=== PATIENT | male | born 1945 ===

== ENCOUNTER 2016-10-28 10:52 | Inpatient (IN) | payer OTHER ==
[2016-10-28] MEDS ORDERED: LIDOCAINE 1% 2 ML INJ ONE (11:16)
[2016-10-28] MEDS ORDERED: LR 1,000 ML IV ONE (11:27)
[2016-10-28] MEDS ORDERED: LIDOCAINE 1% 5 ML SDV ID PRN (11:27)
[2016-10-28] MEDS ORDERED: ceFAZolin 2 GM/DEXTROSE 100 ML IV ONE (12:00)
[2016-10-28] MEDS ORDERED: CHLORHEXIDINE GLUC HIBICLENS 118 ML BTL TP ONE (12:00)
[2016-10-28] MEDS ORDERED: BACITRACIN 50,000 UNITS/10 ML SYR IRR ONE (13:54)
[2016-10-28] MEDS ORDERED: THROMBIN (BOVINE) 5,000 UNIT VIAL TP ONE (13:54)
[2016-10-28] MEDS ORDERED: BUPIVACAINE/EPI 0.25% 30 ML SDV ONE (13:54)
[2016-10-28] MEDS ORDERED: TEMAZEPAM 15 MG CAP PO PRN (14:02)
[2016-10-28] MEDS ORDERED: METHOCARBAMOL 750 MG TAB PO PRN (14:02)
[2016-10-28] MEDS ORDERED: HYDROmorphONE/DILAUDID 6 MG/30 ML PCA IV PRN (14:02)
[2016-10-28] MEDS ORDERED: LACTULOSE 20 GM/30 ML UDCUP PO PRN (14:02)
[2016-10-28] MEDS ORDERED: ACETAMINOPHEN 325 MG TAB PO PRN (14:02)
[2016-10-28] MEDS ORDERED: oxyCODONE IR 5 MG TAB PO PRN (14:02)
[2016-10-28] MEDS ORDERED: ONDANSETRON DISINTEGRATING 4 MG TAB PO PRN (14:02)
[2016-10-28] MEDS ORDERED: POLYETHYLENE GLYCOL 3350 17 GM PKT PO PRN (14:02)
[2016-10-28] MEDS ORDERED: MAGNESIUM HYDROXIDE 30 ML UDCUP PO PRN (14:02)
[2016-10-28] MEDS ORDERED: DIAZEPAM 10 MG/2 ML SYR IVP PRN (14:02)
[2016-10-28] MEDS ORDERED: HYDROmorphONE/DILAUDID 1 MG/ML SYR IVP PRN (14:02)
[2016-10-28] MEDS ORDERED: NALOXONE HCL 0.4 MG/ML INJ IVP PRN (14:02)
[2016-10-28] MEDS ORDERED: BISACODYL 10 MG SUPP PR PRN (14:02)
[2016-10-28] MEDS ORDERED: diphenhydrAMINE 25 MG CAP PO PRN (14:02)
[2016-10-28] MEDS ORDERED: ONDANSETRON 4 MG/2 ML VIAL IVP PRN (14:02)
[2016-10-28] MEDS ORDERED: fentaNYL 100 MCG/2 ML INJ ONE ×4 (14:11→18:08)
[2016-10-28] MEDS ORDERED: PROPOFOL/EMULSION 500 MG/50 ML BOTTLE IV ONE (14:12)
[2016-10-28] MEDS ORDERED: MIDAZOLAM 2 MG/2 ML VIAL ONE (14:14)
[2016-10-28] MEDS ORDERED: NS W/ 20 KCl/L 1,000 ML IV SCH (14:15)
[2016-10-28] MEDS ORDERED: REMIFENTANIL HCL 1 MG VIAL ONE (14:55)
[2016-10-28] MEDS ORDERED: epHEDrine SULFATE 10 MG/ML SYR ONE ×2 (14:57→16:42)
[2016-10-28] MEDS ORDERED: DEXAMETHASONE 4 MG/ML VIAL ONE (17:02)
[2016-10-28] MEDS ORDERED: ONDANSETRON 4 MG/2 ML VIAL ONE (17:03)
--- NOTE | 2016-10-28 17:33 | SOAPPROG ---
SOAP Progress Note Assessment/Plan: Post Op Visit: S: Awake and alert. Pt with expected lower back pain O: AFVSS/PERRLA/EOMI no droop CN 2-12 grossly intact +lt touch 5/5 BUE/BLE = CDI CINDY in place A/P: 71 yo male that is s/p TLIF at L4/5 -orders in place -call with any questions or concerns -take medications as directed -pt seen by Dr Faulkner as well 10/28/16 17:30 ICD10 Worksheet Patient Problems: Problems Problem Status Onset Arthrodesis status Acute Lumbar radiculitis Acute Lumbar stenosis Acute - ICD10 Problem Qualifiers (1) Lumbar stenosis (2) Lumbar radiculitis (3) Arthrodesis status
[2016-10-28] MEDS ORDERED: LABETALOL HCL 50 MG/10 ML SYR ONE (17:40)
[2016-10-28] MEDS ORDERED: hydrALAZINE 20 MG/ML VIAL ONE (18:20)
[2016-10-28 19:38] VITALS: RESP 16
[2016-10-28] MEDS ORDERED: FAMOTIDINE 20 MG/NACL 50 ML IV SCH (21:00)
[2016-10-28] MEDS: FAMOTIDINE 20 MG TAB PO SCH (21:33)
[2016-10-28] MEDS: SENNOSIDES/DOCUSATE SODIUM TAB PO SCH (21:33)
[2016-10-28] MEDS: HYDROCODONE/APAP 10/325 TAB PO PRN (23:31)
[2016-10-28] MEDS: DIAZEPAM 5 MG TAB PO PRN (23:31)
--- NOTE | 2016-10-29 04:53 | GOP ---
[f rep st] OPERATIVE REPORT DATE OF OPERATION: 10/28/2016 SURGEON: Mary Faulkner MD NEUROSURGEON: Mary Faulkner MD. FINANCIAL PROCESSING CLERK: ELIUD Herr. PREOPERATIVE DIAGNOSIS: Lumbar spondylolisthesis L4-5, severe stenosis L4-5, lumbar degenerative di sk disease L5-S1. POSTOPERATIVE DIAGNOSIS: Lumbar spondylolisthesis L4-5, severe stenosis L4-5, lumbar degenerative d isk disease L5-S1. PROCEDURE PERFORMED: Posterior lateral and intervertebral arthrodesis with bilateral decompressions at L4-5 ([id number]), microscope stereotactic instrumentation across a single interspace same incision b one graft harvest, placement of biomechanical intervertebral device L4-5. FINDINGS: ESTIMATED BLOOD LOSS: 100 cc. INDICATIONS: The patient is a 71-year-old gentleman with terrible pain radiating down both legs, ri ght more so than left. 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 I sugges eveline a single level fusion. We did discuss two-level fusions and it was discussed extensively with m y partner as well. We both thought the symptomatic level was L4-5 and the smallest reasonable surge ry would be to do a 1 level fusion. The risk of nerve injury, continued symptoms, screw and hardwar e malposition, malfunction was discussed. He knew that this sometimes fails to alleviate symptoms. The risk of adjacent segment disease and additional surgeries at L3-4 were discussed. He did have a degree of stenosis at 3-4 but nothing that warranted surgery. He did want to proceed. DESCRIPTION OF PROCEDURE: Patient was taken to the operating room, placed in supine position. Gene ral anesthesia was begun. He was flipped prone onto the Loki table. Care was taken to pad all p oints of contact. His back was sterilely prepped and draped in the usual fashion. A localizing x-r ay was taken. We made a midline incision, it was 5 cm in length. The subcutaneous tissue was disse cted using Bovie cautery down to the fascia. A subperiosteal dissection was made down the L4-5 lami na. Self-retaining retractor was placed. A localizing x-ray was taken. We denuded the bilateral L 4-5 hypertrophic facets and indeed the facets were remarkably terrible. We decorticated the TPs at L4 and L5, attached the Stealth reference frame and using frameless stereotactically placed pedicle screws bilaterally at L4 and L5. There was excellent bony purchase. These pedicles were somewhat s maller than one would expect. We put 35 mm rods down over these. The rods did not protrude even a millimeter above the head of L4. They were slightly long at the bottom and we distracted ever so sl ightly. They were locked in place. We then removed all the soft tissue of the bone at L4-5 and mason vested the inferior L4 spinous process for autologous grafting purposes. We preserved the superior supraspinous and interspinous ligaments between L3 and L4. We then drilled and harvested bilateral laminectomy of L4 and then removed the complete right L4-5 facet. We worked diligently on the left- hand side to decompress the left L5 root and the lateral recess at L4-5. We then turned our attenti on to L4-5 on the right where we decompressed the exiting L4 root with a complete facetectomy and th e traversing L5 root. We swept the L5 root medially. There was indeed a prolapse of the L4-5 disc. We incised the disk and removed the disk and the cartilaginous endplates. We roughened the subcho ndral bone to create arthrodesis and chose an 8 x 23 mm device. We packed bony autograft and BMP in to the disk space and inserted the device and under fluoroscopic guidance expanded it. An x-ray was taken. We were happy with the positioning of the device in the disk space. We then decorticated a ll the remaining posterolateral bone bilaterally. There was some epidural bleeding at the site of t he access to the disk space itself and placed some Gelfoam over this and then placed bony autograft and BMP posterolaterally bilaterally. A subfascial drain was placed. The patient was then closed i n multiple layers using Vicryl sutures. A running PDS was placed in the skin itself. There were no complications. He tolerated the procedure well. COMPLICATIONS: None. INSTRUMENTATION USED: Neozone Solara system and an 8 x 23 mm Elevate cage. COMPLICATIONS: None. /[id number]/MODL
[2016-10-29] MEDS: HYDROCODONE/APAP 10/325 TAB PO PRN ×2 (05:12→19:56)
[2016-10-29 05:39] LABS: % IMMATURE GRANULYOCYTES 0.4 % (0.0-1.1); ABSOLUTE IMMATURE GRANULOCYTES 0.03 10^3/uL (0.00-0.10); ADD DIFF? NO; ADD MORPH? NO; ADD SCAN? NO; ATYPICAL LYMPHOCYTE FLAG 0 (0-99); FRAGMENT RBC FLAG 0 (0-99); HEMATOCRIT 33.3 % (40.0-51.0); HEMOGLOBIN 11.5 g/dL (13.7-17.5); LEFT SHIFT FLG 50 (0-99); LIPEMIA HEMOLYSIS FLAG 90 (0-99); MEAN CELL HEMOGLOBIN 29.1 pg (27.9-34.1); MEAN CELL HEMOGLOBIN CONCENTR. 34.5 g/dL (32.4-36.7); MEAN CELL VOLUME 84.3 fL (81.5-99.8); MEAN PLATELET VOLUME 11.1 fL (8.7-11.7); PLATELET CLUMPS FLAG 0 (0-99); PLATELET COUNT 189 10^3/uL (150-400); RED BLOOD CELL COUNT 3.95 10^6/uL (4.40-6.38); RED CELL DISTRIBUTION WIDTH 13.2 % (11.5-15.2)
[2016-10-29 05:50] LABS: ANION GAP 8 mEq/L (8-16); CALCIUM 8.8 mg/dL (8.5-10.4); CARBON DIOXIDE 22 mEq/l (22-31); CHLORIDE 103 mEq/L (97-110); CREATININE 0.8 mg/dL (0.7-1.3); GLOMERULAR FILTRATION RATE > 60; GLUCOSE 163 mg/dL (70-100); POTASSIUM 4.6 mEq/L (3.5-5.2); SODIUM 133 mEq/L (134-144)
[2016-10-29] MEDS: ROSUVASTATIN CALCIUM 20 MG TAB PO SCH (08:39)
[2016-10-29] MEDS: FAMOTIDINE 20 MG TAB PO SCH ×2 (08:39→19:57)
[2016-10-29] MEDS: SENNOSIDES/DOCUSATE SODIUM TAB PO SCH ×2 (08:40→19:57)
[2016-10-29] MEDS ORDERED: LOSARTAN POTASSIUM 50 MG TAB PO SCH (09:00)
[2016-10-29] MEDS ORDERED: LOSARTAN/HCTZ 50/12.5 1 TAB PO SCH (09:00)
[2016-10-29] MEDS ORDERED: CHOLESTYRAMINE PO SCH ×2 (09:00→10:30)
[2016-10-29] MEDS ORDERED: ASPARTAME PO SCH ×2 (09:00→10:30)
--- NOTE | 2016-10-29 10:02 | NEUSURGPN ---
Assessment/Plan: A/P: 71 yo male that is s/p TLIF at L4/5 POD #1 - optimize pain management -Overall doing well this morning -PT/OT -Brace when OOB -DVT: TEDs, SCDs, Lovenox on POD #2 -X-rays pending -CINDY removed -Dispo home later today if passes therapies, tolerating pain, if not, tomorrow -call with any questions or concerns -take medications as directed -pt seen by Dr Faulkner as well Objective: NAD, VSS BUE/BLE 5/5= Sensation intact to lt touch Incision c/d/i CINDY removed successfully by Dr. Faulkner Catheter Insertion Date: 10/28/16 - Physician Discussed Patient with Dr.: Kaushik Patient Seen by : Kaushik Neurosurgery Physical Exam - Vitals, I&O, Labs I and O 10/28/16 10/29/16 10/30/16 05:59 05:59 05:59 Intake Total 3211 Output Total 1365 Balance 1846 Intake: Oral (ml) 830 IV Intake (ml) 2000 IV Infused (ml) 381 NS W/ 20 KCl/L 1,000 ml @ 281 75 mls/hr IV CONT ELVI Rx #:[id number] ceFAZolin 1 GM/DEXTROSE 100 50 ml @ 200 mls/hr IV Q8HRS ELVI Rx#:[id number] Output: Urine (ml) 1000 Catheter 800 Toilet 200 Estimated Blood Loss (ml) 150 Wound Drainage (ml) 170 Left Back Loki Hickman 170 Wound Drainage (ml) 45 Posterior Back Loki 45 Hickman Other: Number of Voids Toilet 1 Vital Signs Temp Pulse Resp BP Pulse Ox 36.4 C 73 16 101/59 L 96 10/29/16 07:17 10/29/16 07:17 10/29/16 07:17 10/29/16 07:17 10/29/16 07:17 Laboratory Results 10/29/16 04:33 10/29/16 04:33 ICD10 Worksheet Patient Problems: Problems Problem Status Onset Arthrodesis status Acute Lumbar radiculitis Acute Lumbar stenosis Acute
[2016-10-29] MEDS: ASPARTAME PO SCH (12:07)
[2016-10-29] MEDS: CHOLESTYRAMINE PO SCH (12:07)
[2016-10-29] MEDS: HYDROCHLOROTHIAZIDE PO SCH (12:09)
[2016-10-29] MEDS: LOSARTAN PO SCH (12:09)
[2016-10-29] MEDS: DIAZEPAM 5 MG TAB PO PRN (19:56)
[2016-10-29 23:13] VITALS: TEMP 98.4
[2016-10-30] MEDS: HYDROCODONE/APAP 10/325 TAB PO PRN ×2 (05:30→08:46)
--- NOTE | 2016-10-30 07:19 | NEUSURGPN ---
Date of Surgery: 10/28/16 Post Op Day: 2 Assessment/Plan: Assessment: 71 yo male that is s/p TLIF at L4/5 POD #2 Plan: -optimize pain management-doing well on current pain meds -Overall doing well this morning -PT/OT-CPM -Brace when OOB-fitting well -DVT: TEDs, SCDs, Lovenox on POD #2 -X-rays look good -CINDY removed already -CDI -Dispo home later today if passes therapies, tolerating pain -call with any questions or concerns -take medications as directed -pt seen by Dr Faulkner as well Subjective: Awake and alert. NAD. Eating/drinking and voiding. No f/c/n/v/d. No youngblood/neck/ chest/abd or gu complaints. Objective: AFVSS/PERRLA/EOMI no droop CN 2-12 grossly intact +lt touch 5/5 BUE/BLE = CDI CNIDY site looks good Neuro Check Frequency: per routine Urinary Catheter in Place: No Catheter Insertion Date: 10/28/16 - Physician Discussed Patient with Dr.: Kaushik Patient Seen by : Kaushik Neurosurgery Physical Exam - Vitals, I&O, Labs I and O 10/29/16 10/30/16 10/31/16 05:59 05:59 05:59 Intake Total 3211 450 Output Total 1365 2450 Balance 1846 -1999 Intake: Oral (ml) 830 450 IV Intake (ml) 2000 IV Infused (ml) 381 NS W/ 20 KCl/L 1,000 ml @ 281 75 mls/hr IV CONT ELVI Rx #:[id number] ceFAZolin 1 GM/DEXTROSE 100 50 ml @ 200 mls/hr IV Q8HRS ELVI Rx#:[id number] Output: Urine (ml) 1000 2450 Catheter 800 Toilet 200 2450 Estimated Blood Loss (ml) 150 Wound Drainage (ml) 170 Left Back Loki Hickman 170 Wound Drainage (ml) 45 Posterior Back Loki 45 Hickman Other: Number of Voids Toilet 1 2 Vital Signs Temp Pulse Resp BP Pulse Ox 36.9 C 82 16 96/50 L 96 10/29/16 23:10 10/29/16 23:10 10/29/16 23:10 10/29/16 23:10 10/29/16 23:10 Laboratory Results 10/29/16 04:33 10/29/16 04:33 ICD10 Worksheet Patient Problems: Problems Problem Status Onset Arthrodesis status Acute Lumbar radiculitis Acute Lumbar stenosis Acute - ICD10 Problem Qualifiers (1) Lumbar stenosis (2) Lumbar radiculitis (3) Arthrodesis status
[2016-10-30 08:42] VITALS: BP 120/66; PULSE 80; O2SAT 94
[2016-10-30] MEDS: FAMOTIDINE 20 MG TAB PO SCH (08:45)
[2016-10-30] MEDS: SENNOSIDES/DOCUSATE SODIUM TAB PO SCH (08:46)
[2016-10-30] MEDS: ROSUVASTATIN CALCIUM 20 MG TAB PO SCH ×2 (08:46→08:48)
[2016-10-30] MEDS: HYDROCHLOROTHIAZIDE PO SCH (08:47)
[2016-10-30] MEDS: LOSARTAN PO SCH (08:47)
--- NOTE | 2016-10-30 11:36 | PDIAF ---
- Diagnosis Diagnosis: s/p L spine fusion Code Status: Full Code - Medication Management Discharge Medications: Medications to Continue on Transfer Cholestyramine/Aspartame [Cholestyramine Light Powder] 8 gm PO DAILY 10/06/16 [ Last Taken 10/27/16] Rosuvastatin Calcium [Crestor 20mg (*)] 20 mg PO DAILY 10/06/16 [Last Taken ] Losartan/Hydrochlorothiazide [Hyzaar 100-12.5 Tablet] 1 each PO DAILY 10/29/16 [ Last Taken 10/27/16] Metoprolol Succinate Xr [Toprol Xl 100 mg (*)] 100 mg PO DAILY 10/29/16 [Last Taken Unknown] Acetaminophen [Tylenol 325mg (*)] 325 - 650 mg PO Q4HRS PRN #0 tab 10/30/16 [ Last Taken Unknown] HYDROcodone/APAP 10/325 [[place] 10/325 (*)] 1 - 2 tab PO Q6HRS PRN #90 tab [Last Taken Unknown] Methocarbamol [Robaxin 750 mg (*)] 750 mg PO QID PRN #60 tab 10/30/16 [Last Taken Unknown] Sennosides/Docusate Sodium [Senokot-S] 1 - 2 tab PO BID #30 tab 10/30/16 [Last Taken Unknown] oxyCODONE IR [Oxycodone Ir (*)] 5 mg PO Q3HRS PRN #0 tab 10/30/16 [Last Taken Unknown] Discharge Medications: Refer to the Discharge Home Medication list for PRN reason. - Orders Services needed: Registered Nurse, Physical Therapy, Occupational Therapy Oxygen: to keep O2 sat above 90% Diet Recommendation: no restrictions on diet Diet Texture: Regular Texture Diet Wound Care Instructions: wound check in 2 weeks - Follow Up Care Current Providers and Referrals: KENZIE MILLAN [Other] Joe Faulkner MD [Medical Doctor] - (see in 2-3 weeks for a recheck)
[2016-10-30] MEDS: CHOLESTYRAMINE PO SCH (13:46)
[2016-10-30] MEDS: ASPARTAME PO SCH (13:46)
[2016-10-31] MEDS ORDERED: ENOXAPARIN 40 MG/0.4 ML SYR SC SCH (09:00)
== END 2016-10-30 14:49 | disposition home health service (06) | DRG 460 ==
LOC: F3N 10:52
PROVIDERS: ADMIT Neurological Surgery; ATTEND Neurological Surgery
PROC: 0SG00AJ Fusion of Lumbar Vertebral Joint with Interbody Fusion Device, Posterior Approach, Anterior Column, Open Approach (ICD-10-PCS; principal; 2016-10-28 13:45)
PROC: 01NB0ZZ Release Lumbar Nerve, Open Approach (ICD-10-PCS; principal; 2016-10-28 13:45)
DX: M43.16 Spondylolisthesis, lumbar region (principal); M51.37 Other intervertebral disc degeneration, lumbosacral region; I10 Essential (primary) hypertension
CPT/HCPCS: 97116-GP; 97161-GP; 97166-GO; 97535-GO; C1713; J0360; J0690; J1100; J2250; J2405; J2704; J3010